=== PATIENT | female | born 1975 | race Two or more races ===

== ENCOUNTER 2025-05-04 08:18 | Outpatient (RCR) | payer MEDICAID, SELFPAY ==
--- NOTE | 2025-05-04 08:42 | PT.OIERPT ---
PT OP Initial Eval Patient Information Outpatient Physical Therapy Treatment Date: 05/04/25 Visit Reasons: PLANTAR FASCIAL FIBROMATOSIS Medical Diagnosis: M72.2 Start of Care: 05/04/25 Date of Onset: 2 yrs ago Smoking Status Smoking Status: Never smoker Initial Assessment Subjective: Pt is 50 yr old yoruba speaking female who reports R foot pain x2 yrs. She has felt less pain since the last injection about 6 weeks ago. She can ambulate for an hour or two before the pain becomes strong. When the pain is strong she gets off her feet and doesn't do HH chores. 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 PMH: HTN Imaging: MRI of ankle and foot in EMR Pronounced Achilles tendinosis, 10 mm plantar bony calcaneal spur, Moderate plantar fasciitis Pt goal: to get rid of the pain Objective: R ankle AROM: DF: 10 deg PF: 52 deg Inversion: 15 deg Eversion: 15 deg TTP: high of plantar heel to mid plantar fascia Heel raise: slow with pain Assessment: Pt presentation consistent with MRI results of 10mm calcaneal spur with pain in that area that runs part way into the plantar fascia. Pt will not likely benefit from skilled therapy or meet goals due to this and has poor rehab potential. Short Term and [employer] Goals Eval and D/C Treatment Plan Eval and D/C Certification Dates: 05/04/25 to 05/05/25 Procedure Charges OP PT Eval Mod Complex 30 minutes: Yes
== END 2025-05-19 23:59 | disposition home or self-care (01) ==
LOC: CPTX 08:18
PROVIDERS: PCP Podiatrist; Referring Provider Podiatrist; Visit Provider Podiatrist
DX: M79.671 Pain in right foot (principal); M72.2 Plantar fascial fibromatosis; I10 Essential (primary) hypertension
CPT/HCPCS: 97162